=== PATIENT | male | born 1965 | race Caucasian/White ===

== ENCOUNTER 2018-07-17 21:53 | Emergency (ER) | payer OTHER ==
[~2018-07-17] VITALS: Ht 185.4 cm; Wt 100.0 kg
[2018-07-17] MEDS ORDERED: HTN MED PO (22:28)
[2018-07-18] MEDS ORDERED: ACETAMINOPHEN 500 MG TABLET PO ONE
[2018-07-18] MEDS ORDERED: IBUPROFEN 600 MG TABLET PO ONE
[2018-07-18 02:00] VITALS: BP 134/78
== END 2018-07-18 02:11 | disposition home or self-care (01) ==
LOC: EMS 21:54
DX: S63.602A Unspecified sprain of left thumb, initial encounter (principal); S80.02XA Contusion of left knee, initial encounter; F43.9 Reaction to severe stress, unspecified; I10 Essential (primary) hypertension; Y04.2XXA Assault by strike against or bumped into by another person, initial encounter; Y93.89 Activity, other specified; Y92.524 Gas station as the place of occurrence of the external cause; Y99.8 Other external cause status